=== PATIENT | male | born 1970 | race Hispanic/Latino ===

== ENCOUNTER 2019-05-01 13:26 | Emergency (ER) | payer MEDICARE ==
[2019-05-01 13:57] VITALS: BP 124/78
--- NOTE | 2019-05-01 14:00 | Event Note ---
ED Screening Note ED Screening Note: pt is from [place] denies ETOH use pt uses crack and meth, used on 04/29/19 no SI/HI no symptoms at all PMHx HIV, peripheral neuropathy no allergies to meds This initial assessment/diagnostic orders/clinical plan/treatment(s) is/are subject to change based on patients health status, clinical progression and re- assessment by fellow clinical providers in the ED. Further treatment and workup at subsequent clinical providers discretion. Patient/guardian urged not to elope from the ED as their condition may be serious if not clinically assessed and managed. Initial orders include: medical clearance workup
[2019-05-01 14:23] LABS: Basophils % (Auto) 0.9 % (0.0-1.8); Eosinophils # (Auto) 0.2 K/mm3 (0.0-0.4); Eosinophils % (Auto) 3.6 % (0.0-4.3); Hematocrit 39.7 % (35.5-45.6); Hemoglobin 13.7 gm/dl (11.8-15.2); Lymphocytes # (Auto) 2.1 K/mm3 (1.2-5.4); Mean Corpuscular HGB Conc 35 % (32-34); Mean Corpuscular Volume 95 fl (84-94); Monocytes # (Auto) 0.5 K/mm3 (0.0-0.8); Monocytes % (Auto) 9.5 % (0.0-7.3); Platelet Count 323 K/mm3 (140-440); Red Blood Count 4.18 M/mm3 (3.65-5.03); Red Cell Distribution Width 15.3 % (13.2-15.2)
[2019-05-01 15:15] LABS: Alanine Aminotransferase 44 units/L (7-56); Albumin 3.8 g/dL (3.9-5); BUN/Creatinine Ratio 17; Blood Urea Nitrogen 12 mg/dL (9-20); Calcium 9.1 mg/dL (8.4-10.2); Hemolysis Index 4
--- NOTE | 2019-05-01 15:42 | Emergency Department Report ---
ED Psych HPI - General Chief Complaint: Medical Clearance Stated Complaint: MED CLEARANCE Time Seen by Provider: 05/01/19 13:58 Source: patient Mode of arrival: Ambulatory - History of Present Illness Initial Comments: Mr. Walsh is a very pleasant 48-year-old male with history of HIV, methamphetamine and cocaine abuse, peripheral neuropathy who presents to ER after drug relapse. He desired to return to [facility] for drug treatment. Consequently he needs medical clearance for readmission to [facility]. He denies any new physical complaints. He has chronic mild pain in his legs due to peripheral neuropathy. He denies chest pain, denies shortness of breath, denies abdominal pain, denies fever. He just needs documentation stating that he is medically clear for psychiatric care. MD Complaint: other (polysubstance abuse) -: year(s) (several) Associated Psychiatric Symptoms: other (drug addition) History of same: Yes Quality: constant Improves With: none Worsens With: none Context: significant life stressor, other (recent drug abuse) Associated Symptoms: denies other symptoms Treatments Prior to Arrival: none - Related Data Allergies Allergy/AdvReac Type Severity Reaction Status Date / Time No Known Allergies Allergy Unverified 05/01/19 13:27 ED Review of Systems ROS: Stated complaint: MED CLEARANCE Other details as noted in HPI Comment: All other systems reviewed and negative Constitutional: denies: fever, malaise Respiratory: denies: cough Cardiovascular: denies: chest pain Gastrointestinal: denies: abdominal pain ED Past Medical Hx - Past Medical History Additional medical history: HIV/ NEUROPATHY - Surgical History Past Surgical History?: No - Social History Smoking Status: Unknown if ever smoked Substance Use Type: None ED Physical Exam - General Limitations: No Limitations General appearance: alert, in no apparent distress - Head Head exam: Present: atraumatic, normocephalic - Eye Eye exam: Present: normal appearance - ENT ENT exam: Present: mucous membranes moist - Neck Neck exam: Present: normal inspection, full ROM - Respiratory Respiratory exam: Present: normal lung sounds bilaterally. Absent: respiratory distress, wheezes, rales, rhonchi - Cardiovascular Cardiovascular Exam: Present: regular rate, normal rhythm, normal heart sounds. Absent: bradycardia, systolic murmur, diastolic murmur, rubs, gallop - GI/Abdominal GI/Abdominal exam: Present: soft, normal bowel sounds. Absent: tenderness, guarding, rebound - Rectal Rectal exam: Present: deferred - Extremities Exam Extremities exam: Present: normal inspection - Back Exam Back exam: Present: normal inspection - Neurological Exam Neurological exam: Present: alert, oriented X3 - Psychiatric Psychiatric exam: Present: normal affect, normal mood. Absent: depressed, agitated, anxious, flat affect, manic, homicidal ideation, suicidal ideation - Skin Skin exam: Present: warm, dry, intact, normal color. Absent: rash ED Course Vital Signs 05/01/19 13:54 Temperature 98.6 F Pulse Rate 96 H Respiratory 18 Rate Blood Pressure 124/78 O2 Sat by Pulse 98 Oximetry ED Medical Decision Making - Lab Data Result diagrams: 05/01/19 14:10 05/01/19 14:10 Laboratory Results - last 24 hr 05/01/19 05/01/19 05/01/19 14:10 14:10 14:10 WBC 5.0 RBC 4.18 Hgb 13.7 Hct 39.7 MCV 95 H MCH 33 H MCHC 35 H RDW 15.3 H Plt Count 323 Lymph % (Auto) 42.0 H Ellis % (Auto) 9.5 H Eos % (Auto) 3.6 Baso % (Auto) 0.9 Lymph # 2.1 Ellis # 0.5 Eos # 0.2 Baso # 0.0 Seg Neutrophils % 44.0 Seg Neutrophils # 2.2 Sodium 138 Potassium 4.5 Chloride 98.4 Carbon Dioxide 26 Anion Gap 18 BUN 12 Creatinine 0.7 L Estimated GFR > 60 BUN/Creatinine Ratio 17 Glucose 84 Calcium 9.1 Total Bilirubin 0.20 AST 30 ALT 44 Alkaline Phosphatase 80 Total Protein 6.9 Albumin 3.8 L Albumin/Globulin Ratio 1.2 Salicylates < 0.3 L Acetaminophen Plasma/Serum Alcohol 05/01/19 05/01/19 14:10 14:10 WBC RBC Hgb Hct MCV MCH MCHC RDW Plt Count Lymph % (Auto) Ellis % (Auto) Eos % (Auto) Baso % (Auto) Lymph # Ellis # Eos # Baso # Seg Neutrophils % Seg Neutrophils # Sodium Potassium Chloride Carbon Dioxide Anion Gap BUN Creatinine Estimated GFR BUN/Creatinine Ratio Glucose Calcium Total Bilirubin AST ALT Alkaline Phosphatase Total Protein Albumin Albumin/Globulin Ratio Salicylates Acetaminophen < 5.0 L Plasma/Serum Alcohol < 0.01 - Medical Decision Making I have reviewed labs are obtained. CBC chemistry serum toxicologies all within normal limits. Mr. Walsh is medically clear for psychiatric care. He is discharged to self-care. Critical care attestation.: If time is entered above; I have spent that time in minutes in the direct care of this critically ill patient, excluding procedure time. ED Disposition Clinical Impression: Medical clearance for psychiatric admission Disposition: [id number] TO HOME OR SELFCARE Is pt being admited?: No Does the pt Need Aspirin: No Condition: Stable Instructions: Medical Clearance for Psychiatric Care (ED) Additional Instructions: Mr. Walsh is medically clear for psychiatric care. Labs were obtained here in the emergency department.
[2019-05-01 15:45] LABS: Bilirubin,Urine NEG (Negative); Blood,Urine NEG (Negative); Color,Urine Colorless (Yellow); Protein,Urine <15 mg/dL mg/dL (Negative); RBC,Urine < 1.0 /HPF (0.0-6.0); Urobilinogen,Urine < 2.0 mg/dL (<2.0)
[2019-05-01 15:48] LABS: WBC,Urine < 1.0 /HPF (0.0-6.0)
[2019-05-01 15:56] LABS: Amphetamine Screen,Urine PRESUMPTIVE NEGATIVE; Benzodiazepines Screen,Urine PRESUMPTIVE NEGATIVE; Cannabinoid Screen,Urine PRESUMPTIVE NEGATIVE; Methadone Screen,Urine PRESUMPTIVE NEGATIVE; Opiate Screen,Urine PRESUMPTIVE NEGATIVE
[2019-05-01 16:08] LABS: Cocaine Screen,Urine PRESUMPTIVE POSITIVE
== END 2019-05-01 16:09 | disposition home or self-care (01) ==
LOC: ED 13:26
DX: G89.29 Other chronic pain (principal); M79.604 Pain in right leg; M79.605 Pain in left leg
CPT/HCPCS: 36415; 80053; 80307; 80320; 81001; 85025; 93005; 93010; G0480